=== PATIENT | male | born 1960 | race Caucasian/White ===

== ENCOUNTER 2022-10-18 14:17 | Inpatient (IN) ==
--- NOTE | 2022-10-18 14:28 | Emergency Department Note ---
Impression & Plan Acute hyponatremia, Anal or rectal pain, Hypertension ED Provider Note NAME: MERCEDES PHILLIPS AGE: 62 SEX: M : 1960 ARRIVES VIA: Walk-In INFORMANT: Patient, ED PROVIDER(S): Juan José Booth MD CHIEF COMPLAINT: Buttock pain MEDICAL DECISION MAKING: Patient presents due to concern with left-sided perirectal discomfort. The pa tient does not have significant evidence of obvious abscess concerning findings based on exam but the patient has had worsening discomfort over the last 1 to 2 weeks and has a known history of fistulization. The patient did have blood work completed was ordered IV Toradol and IV morphine and IV was established and blood work was obtained. CT of the pelvis with IV contrast ordered. Patient blood work showed a normal white count H&H and platelet count. CT of the abdomen pelvis does not show any acute concerning findings at this time. The patient was noted to have hyponatremia at 119. The patient does admit to drinking a lot of free water but denies any alcohol use. Patient was ordered u rine and serum awesome's as well as urine electrolytes. I did speak with the on-call hospitalist service Mercedes Peter PA-C and the patient was admitted by Dr. Vogt. Patient was ordered additional IV pain medication. Patient was ordered 75 mcg of fentanyl. Prior /Outside records reviewed: None Differential diagnosis: Fissure, hemorrhoids, abscess, cellulitis, colitis, tear among others were considered Diagnostics, as interpreted by me: ECG: None Cardiac monitoring: An order was placed for continuous cardiac monitoring. The monitor shows a rate of 88 with sinus rhythm. Patient was placed on pulse oximetry Medical decision rules: None Imaging studies: See below HPI: Patient presents due to concern for left-sided buttock pain. The patient states this been ongoing for 1 to 2 weeks. The patient had been seen by Dr. Monte and was referred to a general surgeon. The patient was seen by Dr. Arroyo this Friday and was referred for colorectal this upcoming Friday. The patient has been using naproxen and diltiazem. Patient states that this is not greatly improved symptoms and his pain is more tolerable. Patient denies any fevers chills chest pain shortness of breath nausea or vomiting. Patient presented here today due to worsening discomfort. Patient states that he has decreased the amount of his solids does have occasional discomfort with defecation but no bleeding. Patient has no fevers or chills. PAST MEDICAL HISTORY: See Below PAST SURGICAL HISTORY: See Below SOCIAL HISTORY: See Below HOME MEDICATIONS: See Below ALLERGIES: See Below VITALS: See Below PHYSICAL EXAMINATION: GENERAL: NAD, wearing a mask, non-toxic. BMI greater than 30, wearing glasses. EYE EXAM: Normal conjunctiva. PERRL, no anisocoria and EOM's grossly intact w/o pain. NECK: Supple, no nuchal rigidity, no adenopathy, non-tender. No signs of meningismus. FROM of the neck with good chin to chest and neck extension. No stridor. LUNGS: Clear to auscultation. Normal chest wall mechanics. HEART: NSR, no MRG. ABDOMEN: Abdomen soft, non-tender, normo-active bowel sounds, no masses, no rebound or guarding. BACK: No CVA TTP. SKIN: No rashes and no bruising. Rectal: Some redness noted but no obvious fluctuance or drainage, no fissures, tears or hemorrhoids. Mild discomfort to the left perianal area. UPPER EXTREMITIES: Upper extremities are grossly normal. LOWER EXTREMITIES: Grossly normal, no edema. NEURO EXAM: A&O x3, cranial nerves II-XII grossly intact, normal speech, moves all 4 extremities. Past Med/Surg History Medical History Diabetes History of rectal fissure Surgical History History of rectal sphincterotomy 2017 & 2019 Family History Father Melanoma Cancer Aunt Diabetes Denies family history of Ovarian cancer Prostate cancer Myocardial infarction Breast cancer Colorectal cancer Social History Smoking Status: Never smoker Second Hand Exposure: No; Hx Alcohol Use: No Hx Substance Use: No Preferred Language: Persian Communication Ability: Effective Visual Impairment: No Limitations Hearing Ability: Normal Television Maintenance Man Required: No marital status: Single Current Living Situation: Alone current occupational status: employed and retired current occupation: [employer] Feels Safe at Home: Yes Childhood Exposure to Second-Hand Smoke: No Diet Comment: regular Dental Care, Regularly: No Physical Activity Frequency: Does not Exercise Seatbelt Use: always Sunscreen Use: Yes Assistive Devices: Glasses Allergies Allergies Allergy/AdvReac Type Severity Reaction Status Date / Time amoxicillin Allergy Intermediate Rash Verified 10/16/22 09:30 Home Meds Home Medications Medication Instructions Recorded Confirmed B-complex with vitamin C 1 cap PO DAILY 10/16/22 10/18/22 cholecalciferol (vitamin D3) 50 50 mcg PO DAILY 10/16/22 10/16/22 mcg (2,000 unit) capsule magnesium 250 mg tablet 250 mg PO DAILY 10/16/22 10/18/22 Previous Rx's Medication Instructions Recorded hydrocortisone 2.5 % topical cream 1 applic CA DAILY PRN hemorrhoids 10/15/22 with perineal applicator #30 grams (Proctozone-HC) naproxen 500 mg tablet 500 mg PO BID PRN pain #14 tabs 10/15/22 diltiazem 2% 1 bead CA BID #1 tube 10/16/22 cephalexin 500 mg tablet 500 mg PO QID 5 days #28 tabs 10/18/22 Results & Data (ED) Vital Signs Vital Signs - 24 hr 10/18/22 14:23 10/18/22 15:12 Temperature 36.6 C Temperature Source Temporal Artery Scan Pulse Rate 92 H Pulse Rate [Right Finger] 80 Pulse Rhythm Regular Pulse Rhythm [Right Finger] Regular Pulse Strength Normal Pulse Strength [Right Finger] Normal Respiratory Rate 20 18 Respiratory Effort / Characteristics Non-Labored Spontaneous Non-Labored Respiratory Depth Normal Normal Respiratory Pattern Regular Regular Blood Pressure 203/103 H Blood Pressure [Right Arm] 203/114 H Blood Pressure Mean 136 Blood Pressure Mean [Right Arm] 143 Blood Pressure Position Sitting Pulse Oximetry 96 95 Oxygen Delivery Method Room Air Room Air Sepsis Recent Fever Within 48 Hours No Sepsis New/Unexplained Change in Mental Status No Sepsis Action Taken by Nursing No Action Required Home Medications Current Medication List: was personally reviewed by me Laboratory Data Attestation: I reviewed the patient's lab results. 10/18/22 15:05 10/18/22 15:54 Lab Results 10/18/22 10/18/22 10/18/22 Range/Units 15:05 15:05 15:12 WBC 9.01 (4.8-10.8) K/ul RBC 4.86 (4.70-6.10) M/uL Hgb 15.5 (14.0-18.0) g/dl POC Hgb 16.3 (14.0-18.0) g/dl Hct 42.6 (42.0-52.0) % POC Hct 48 (42-52) % MCV 87.7 (80.0-100.0) fL MCH 31.9 (25.0-34.0) pg MCHC 36.4 H (32.0-36.0) g/dL RDW Std Deviation 37.4 (36.4-46.3) fL RDW Coeff of Surekha 11.6 (11.5-14.5) % Plt Count 272 (130-400) K/uL MPV 8.7 L (9.4-12.4) fL Immature Gran % (Auto) 0.2 % Neut % (Auto) 72.1 % Lymph % (Auto) 16.5 % Geary % (Auto) 9.9 % Eos % (Auto) 0.6 % Baso % (Auto) 0.7 % Neut # (Auto) 6.50 (1.40-6.50) K/uL Lymph # (Auto) 1.49 (1.2-3.4) K/uL Geary # (Auto) 0.89 H (0.11-0.59) K/uL Eos # (Auto) 0.05 (0-0.50) K/uL Baso # (Auto) 0.06 (0-0.2) K/uL Immature Gran # (Auto) 0.02 (0.01-0.20) K/uL POC Sodium 123 L (135-144) mmol/L Sodium TNP POC Potassium 4.3 (3.3-5.0) mmol/L Potassium TNP POC Chloride 85 L (101-112) mmol/L Chloride 87 L (98-107) mmol/L Carbon Dioxide 26 (21-32) mmol/L POC Total CO2 27 (24-31) mmol/L Anion Gap TNP POC Anion Gap 16.0 (16-25) mmol/L POC BUN 10 (7-18) mg/dl BUN 10 (6-23) mg/dl Creatinine 0.71 (0.6-1.4) mg/dl POC Creatinine 0.6 (0.6-1.3) mg/dl Est Cr Clr Drug Dosing 158.5 ml/min Est GFR ( Amer) 114.9 ml/min Est GFR (Non-Af Amer) 99.2 ml/min BUN/Creatinine Ratio 14.1 (10-20) Glucose 138 H (70-99(Fasting)) mg/dl POC Glucose (other) 139 H (70-99) mg/dl Calcium 8.9 (8.5-10.1) mg/dl POC Ioniz Calcium Steve 1.03 L (1.12-1.32) mmol/l AST (13-39) U/L 10/18/22 Range/Units 15:54 WBC (4.8-10.8) K/ul RBC (4.70-6.10) M/uL Hgb (14.0-18.0) g/dl POC Hgb (14.0-18.0) g/dl Hct (42.0-52.0) % POC Hct (42-52) % MCV (80.0-100.0) fL MCH (25.0-34.0) pg MCHC (32.0-36.0) g/dL RDW Std Deviation (36.4-46.3) fL RDW Coeff of Surekha (11.5-14.5) % Plt Count (130-400) K/uL MPV (9.4-12.4) fL Immature Gran % (Auto) % Neut % (Auto) % Lymph % (Auto) % Geary % (Auto) % Eos % (Auto) % Baso % (Auto) % Neut # (Auto) (1.40-6.50) K/uL Lymph # (Auto) (1.2-3.4) K/uL Geary # (Auto) (0.11-0.59) K/uL Eos # (Auto) (0-0.50) K/uL Baso # (Auto) (0-0.2) K/uL Immature Gran # (Auto) (0.01-0.20) K/uL POC Sodium (135-144) mmol/L Sodium 119 L* POC Potassium (3.3-5.0) mmol/L Potassium 4.3 POC Chloride (101-112) mmol/L Chloride (98-107) mmol/L Carbon Dioxide (21-32) mmol/L POC Total CO2 (24-31) mmol/L Anion Gap POC Anion Gap (16-25) mmol/L POC BUN (7-18) mg/dl BUN (6-23) mg/dl Creatinine (0.6-1.4) mg/dl POC Creatinine (0.6-1.3) mg/dl Est Cr Clr Drug Dosing ml/min Est GFR ( Amer) ml/min Est GFR (Non-Af Amer) ml/min BUN/Creatinine Ratio (10-20) Glucose (70-99(Fasting)) mg/dl POC Glucose (other) (70-99) mg/dl Calcium (8.5-10.1) mg/dl POC Ioniz Calcium Steve (1.12-1.32) mmol/l AST 51 H (13-39) U/L Administered Medications Discontinued Medications Ioversol (Optiray 320 500ml) 110 ml IV ONCE ONE Stop: 10/18/22 15:23 Last Admin: 10/18/22 15:23 Dose: 110 ml Documented By: GARRY Ketorolac Tromethamine (Ketorolac Tromethamine 15 Mg/Ml Vial) 10 mg IV NOW STA Stop: 10/18/22 15:01 Last Admin: 10/18/22 15:09 Dose: 10 mg Documented By: CGK Morphine Sulfate (Morphine Sulfate 4 Mg/Ml 1 Ml Carp\Vial) 6 mg IV NOW STA Stop: 10/18/22 15:01 Last Admin: 10/18/22 15:10 Dose: 6 mg Documented By: CGK Imaging Data Radiologist's Impression: Pelvis CT 10/18/22 15:00 CT SCAN OF THE PELVIS WITH IV CONTRAST CLINICAL HISTORY: Perianal/rectal pain. Clinical concern for abscess. COMPARISON STUDY: No priors. TECHNIQUE: Following the IV administration of 110 cc of Optiray 320, CT scan of the pelvis is performed from the pelvic inlet to the proximal femur. Images are reviewed in the axial, sagittal, and coronal planes. IV contrast was administered without complication. A dose lowering technique was utilized adhering to the principles of ALARA. CT DOSE: 1143.03 mGy.cm FINDINGS: The bladder, prostate, and seminal vesicles are normal as visualized. There are small bilateral fat-containing groin hernias. No pelvic sidewall or inguinal lymphadenopathy is seen. There is atherosclerotic calcification of the distal abdominal aorta and iliac arteries. The vessels are patent. No intraperitoneal free air or free fluid is seen in the pelvis. The imaged loops of small bowel and colon are normal in appearance. There is no evidence of obstruction. Normal appendix is seen in the right lower quadrant. The perianal soft tissues are normal in appearance. There is no evidence of p erianal abscess or fistula. The hips and bony pelvis appear intact. Lumbosacral spondylosis is partially visualized. Degenerative change is noted in the sacroiliac joints. No lytic or blastic lesion is seen. There is mild generalized atrophy of the regional musculature. IMPRESSION: No acute abnormality is seen in the pelvis. Specifically, there is no evidence of perianal abscess or fistula as clinically queried. ACT 112: Negative or not required by law. Dictated: 10/18/2022 3:29 PM Transcribed: 10/18/2022 3:45 PM Vicki [id number] NATANAEL_Rocky [id number] Electronically signed by: Mahesh Mckeon M.D. 10/18/2022 3:45 PM Discharge Plan Visit Data Chief Complaint: Rectal Pain Stated Complaint: RECTAL PAIN ED Provider: Juan José Booth Discharge Problem: Acute hyponatremia, Anal or rectal pain, Hypertension Patient Disposition: Admitted As Inpatient Prescriptions Prescriptions: New cephalexin 500 mg tablet 500 mg PO QID 5 Days Qty: 28 0RF No Action B-complex with vitamin C Capsule 1 cap PO DAILY cholecalciferol (vitamin D3) 50 mcg (2,000 unit) capsule 50 mcg PO DAILY magnesium 250 mg tablet 250 mg PO DAILY diltiazem 2% 1 bead CA BID Qty: 1 0RF hydrocortisone [Proctozone-HC] 2.5 % cream with perineal applicator 1 applic CA DAILY PRN (Reason: hemorrhoids) Qty: 30 1RF naproxen 500 mg tablet 500 mg PO BID PRN (Reason: pain) Qty: 14 1RF Referrals Referrals: Anupam Monte, [Primary Care Provider] -
[2022-10-18] MEDS ORDERED: MoRPHine SULFATE 4 MG/ML 1 ML CARP\\VIAL IV STA (15:00)
[2022-10-18] MEDS ORDERED: KETOROLAC TROMETHAMINE 15 MG/ML VIAL IV STA (15:00)
[2022-10-18] MEDS ORDERED: OPTIRAY 320 500ml IV ONE (15:22)
[2022-10-18 15:24] LABS: iSTAT Creatinine 0.6 mg/dl (0.6-1.3); iSTAT Hemoglobin 16.3 g/dl (14.0-18.0); iSTAT Ionized Calcium 1.03 mmol/l (1.12-1.32); iSTAT Potassium 4.3 mmol/L (3.3-5.0)
[2022-10-18 15:29] LABS: Basophils # (auto) 0.06 K/uL (0-0.2); Basophils % (auto) 0.7 %; Eosinophils # (auto) 0.05 K/uL (0-0.50); Eosinophils % (auto) 0.6 %; Hematocrit (blood only) 42.6 % (42.0-52.0); Hemoglobin 15.5 g/dl (14.0-18.0); Immature Granulocytes # (auto) 0.02 K/uL (0.01-0.20); Immature Granulocytes % (auto) 0.2 %; Lymphocytes # (auto) 1.49 K/uL (1.2-3.4); Lymphocytes % (auto) 16.5 %; Mean Corpuscular Hemoglobin 31.9 pg (25.0-34.0); Mean Corpuscular Hgb Conc 36.4 g/dL (32.0-36.0); Mean Corpuscular Volume 87.7 fL (80.0-100.0); Mean Platelet Volume 8.7 fL (9.4-12.4); Monocytes # (auto) 0.89 K/uL (0.11-0.59); Monocytes % (auto) 9.9 %; Neutrophils % (auto) 72.1 %; Platelet Count 272 K/uL (130-400); RDW Coefficient of Variation 11.6 % (11.5-14.5); RDW Standard Deviation 37.4 fL (36.4-46.3); Red Blood Count 4.86 M/uL (4.70-6.10); White Blood Count 9.01 K/ul (4.8-10.8)
[2022-10-18 15:39] LABS: BUN Creatinine Ratio 14.1 (10-20); Blood Urea Nitrogen 10 mg/dl (6-23); Calcium 8.9 mg/dl (8.5-10.1); Carbon Dioxide 26 mmol/L (21-32); Chloride 87 mmol/L (98-107); Creatinine Clr Calc Pharmacy 158.5 ml/min; Est GFR (African American) 114.9 ml/min; Est GFR (Non-African American) 99.2 ml/min; Glucose 138 mg/dl (70-99(Fasting))
--- NOTE | 2022-10-18 15:47 | CT Scan Report ---
CT SCAN OF THE PELVIS WITH IV CONTRAST CLINICAL HISTORY: Perianal/rectal pain. Clinical concern for abscess. COMPARISON STUDY: No priors. TECHNIQUE: Following the IV administration of 110 cc of Optiray 320, CT scan of the pelvis is perform ed from the pelvic inlet to the proximal femur. Images are reviewed in the axial, sagittal, and coron al planes. IV contrast was administered without complication. A dose lowering technique was utilized adhering to the principles of ALARA. CT DOSE: 1143.03 mGy.cm FINDINGS: The bladder, prostate, and seminal vesicles are normal as visualized. There are small bilateral fat-c ontaining groin hernias. No pelvic sidewall or inguinal lymphadenopathy is seen. There is atheroscler otic calcification of the distal abdominal aorta and iliac arteries. The vessels are patent. No intra peritoneal free air or free fluid is seen in the pelvis. The imaged loops of small bowel and colon are normal in appearance. There is no evidence of obstructi on. Normal appendix is seen in the right lower quadrant. The perianal soft tissues are normal in appe arance. There is no evidence of perianal abscess or fistula. The hips and bony pelvis appear intact. Lumbosacral spondylosis is partially visualized. Degenerative change is noted in the sacroiliac joints. No lytic or blastic lesion is seen. There is mild generali zed atrophy of the regional musculature. IMPRESSION: No acute abnormality is seen in the pelvis. Specifically, there is no evidence of periana l abscess or fistula as clinically queried. ACT 112: Negative or not required by law. Dictated: 10/18/2022 3:29 PM Transcribed: 10/18/2022 3:45 PM Vicki [id number] NATANAEL_[facility]y [id number] Electronically signed by: Mahesh Mckeon M.D. 10/18/2022 3:45 PM
[2022-10-18 16:31] LABS: Potassium 4.3 mmol/L (3.5-5.1)
[2022-10-18] MEDS ORDERED: fentaNYL citrate PF 100 MCG/2 ML VIAL IV STA (17:30)
--- NOTE | 2022-10-18 17:35 | History & Physical Report ---
Date of Service October 18, 2022 Assessment & Plan (1) Hyponatremia: Plan: -Admit to the PCU on tele -The patient is currently afebrile, hypertensive with systolic BP in the 180's, and stable on RA -At this time his hyponatremia appears most associated with primary polydipsia and poor oral intake -The patient's only symptoms at this time are generalized fatigue -No IV fluids given in the ED -Will repeat a BMP and obtain serum and urine studies for further evaluation -For now will fluid restrict the patient at 1L with no free water -Monitor BMP q4h moving forward -If his repeat sodium is 120 or less will administer a dose of hypertonic saline -BL SCDs and Sub-Q lovenox for DVT PPX -AM CBC with trending BMPs (2) Anal or rectal pain: Plan: -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 as he has been evaluated by General Surgery who referred him to [facility] [place] -The patient is without a leukocytosis and has been afebrile, no acute abnormalities seen on CT, will hold ABX for now -Continue with topical hydrocortisone cream, continue stool softeners, will order scheduled tylenol and 2 mg IV morphine q3h prn for severe pain (3) Hypertension: Plan: -Noted to be hypertensive with systolics in the 200's but asymptomatic -Is not currently on an antihypertensive -Will start 5 mg IV hydralazine q4h prn systolic BOP > 160 mmhg for now -May need to be discharged on an antihypertensive Plan The patient was discussed with Dr. Vogt at the time of the admission History of Present Illness Chief Complaint: Buttock pain Primary Care Provider: DO Fahad Burns is a 62 year old male with a PMH significant for pervious perirectal fissure S/P surgery in [place] 2017 and 2019 and HTN who presented to the [facility] ED on 10/18/22 with a chief complaint of left buttock pain. In the ED the patient was noted to be afebrile, hypertensive at 203/103, and stable on RA. Labs were significant for a CBC with WBC of 9.0 with stable hgb and platelets, cr of 0.71 with sodium of 119, chloride of 87, ionized calcium of 1.03, and AST of 51. CT of the pelvis with IV contrast was read as "No acute abnormality is seen in the pelvis. Specifically, there is no evidence of perianal abscess or fistula as clinically queried.". The patient was initially given 10 mg IV toradol, 6 mg IV morphine, and 75 mcg of IV fentanyl with plans to DC on PO antibiotics until he was found to be hyponatremic. At the time of the exam the patient was sitting in a bedside chair in no acute distress. He states that he moved to the from [place] approximately one year ago and recently established care with our system. He states that his PMH is consistent for HTN (not currently on medication), previous DMII before weight loss, previous anal fistula S/P fistulotomy as well as a lateral internal sphincterotomy in [place]. He states that approximately 6 weeks ago he started to internal rectal pain. He describes the pain as sharp/stabbing and is exacerbated with bowel movements and palpation. He was seen by Dr. Garza of General Surgery on 10/16/22 who believes the patient likely has an anal fissure as his external exam was normal and he was unable to tolerate a digital exam or anoscopy. Dr. Garza prescribed him diltiazem ointment to be used twice daily, which the patient has been taking without relief of his symptoms. Dr. Garza did refer him to [facility] Colorectal Surgery, of which he has an appointment next week. He came to the ED today due to uncontrolled pain on Naproxen and the topical therapies. Regarding his hyponatremia, the patient states that he does not have a prior history. He is not currently on diuretics, does not drink alcohol, and has not had prior GI surgeries besides the 2 previously listed. When asked about diet, the patient states that he has been trying to limit the amount of solid foods he has been eating to try and keep his bowel movements soft. He has been drinking a lot of water, approximately 8-12 12 OZ bottles of water daily. He denies currently fevers, chills, headaches, changes in vision, hearing, taste, smell, numbness/tingling, chest pain, SOB, abd pain, nausea, vomiting, diarrhea, dy suria, hematuria, LE swelling and recent trauma. Please refer to Dr. Vogt's attestation for any changes to the treatment plan Allergies Allergy/AdvReac Type Severity Reaction Status Date / Time amoxicillin Allergy Intermediate Rash Verified 10/16/22 09:30 Home Medications Medication Instructions Recorded Confirmed Type hydrocortisone 2.5 % topical cream 1 applic IN DAILY PRN hemorrhoids 10/15/22 10/18/22 Rx with perineal applicator #30 grams (Proctozone-HC) naproxen 500 mg tablet 500 mg PO BID PRN pain #14 tabs 10/15/22 10/18/22 Rx B-complex with vitamin C 1 cap PO DAILY 10/16/22 10/18/22 History cholecalciferol (vitamin D3) 50 50 mcg PO DAILY 10/16/22 10/16/22 History mcg (2,000 unit) capsule diltiazem 2% 1 bead IN BID #1 tube 10/16/22 10/18/22 Rx magnesium 250 mg tablet 250 mg PO DAILY 10/16/22 10/18/22 History cephalexin 500 mg tablet 500 mg PO QID 5 days #28 tabs 10/18/22 Rx Past Med/Surg History Medical History Diabetes History of rectal fissure Surgical History History of rectal sphincterotomy 2018 & 2019 Family History Father Melanoma Cancer Aunt Diabetes Denies family history of Ovarian cancer Prostate cancer Myocardial infarction Breast cancer Colorectal cancer Social History Smoking Status: Never smoker Second Hand Exposure: No; Hx Alcohol Use: No Hx Substance Use: No Preferred Language: [place]guill[place] Communication Ability: Effective Visual Impairment: No Limitations Hearing Ability: Normal 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 Beliefs That Will Affect Care: None marital status: Single Current Living Situation: Alone current occupational status: employed and retired current occupation: [employer] Other Information That Helps Us Care for You: No Feels Safe at Home: Yes Safety Concerns: Feels Safe At This Time Childhood Exposure to Second-Hand Smoke: No Diet Comment: regular Dental Care, Regularly: No Physical Activity Frequency: Does not Exercise Seatbelt Use: always Sunscreen Use: Yes Assistive Devices: Glasses Review of Systems Review of Systems: Denies current fever, chills, headache, changes in vision, hearing, taste, and smell, chest pain, SOB, cough, abdominal pain, nausea, vomiting, diarrhea, hematemesis, melena, dysuria, hematuria, and recent falls. All systems have been reviewed and are otherwise negative. Physical Exam Physical Exam: Physical Exam: General: In no acute distress, stated age, morbidly obese, non-toxic appearing HEENT: Normocephalic, atraumatic, no scleral icterus, pupils around round, symmetrical, and reactive to light, moist mucus membranes, trachea midline, no thyromegaly Chest/Pulm: No respiratory distress, symmetrical chest expansion, clear breath sounds throughout Cardiac: RRR, no murmurs noted Abdomen: Negative for ascites and bruising, normoactive bowel sounds, soft, non-tender to palpation throughout GI: Patient without signs of erythema, swelling, or drainage on inspection of the buttocks and anus, patient declined digital exam Musculoskeletal: Symmetrical and without signs of acute trauma, upper and lower extremities with full ROM, no atrophy, spasticity, or flaccidity Extremities: Radial, dorsalis pedis, and posterior tibial pulses are intact and symmetrical, no edema noted in the BL LE's Skin: Warm, dry, no rashes , lesions, or scars noted Neuro: Alert and oriented to person, place, month, year, and president, no focal defects, CN II-XII tested and intact, no tremors noted Psych: No acute distress, calm and cooperative during the exam Results & Data Results & Data ([facility]) Vital Signs (Past 12 Hours) Vital Signs Temp Pulse Pulse Resp BP BP Pulse Ox 10/18/22 15:12 80 18 203/114 H 95 10/18/22 14:23 36.6 C 92 H 20 203/103 H 96 O2 Del Method 10/18/22 15:12 Room Air 10/18/22 14:23 Room Air Laboratory Results Abnormal lab results 10/18/22 10/18/22 10/18/22 Range/Units 15:05 15:05 15:12 MCHC 36.4 H (32.0-36.0) g/dL MPV 8.7 L (9.4-12.4) fL Lares # (Auto) 0.89 H (0.11-0.59) K/uL POC Sodium 123 L (135-144) mmol/L Sodium (136-145) mmol/L POC Chloride 85 L (101-112) mmol/L Chloride 87 L (98-107) mmol/L Glucose 138 H (70-99(Fasting)) mg/dl POC Glucose (other) 139 H (70-99) mg/dl POC Ioniz Calcium Steve 1.03 L (1.12-1.32) mmol/l AST (13-39) U/L 10/18/22 Range/Units 15:54 MCHC (32.0-36.0) g/dL MPV (9.4-12.4) fL Lares # (Auto) (0.11-0.59) K/uL POC Sodium (135-144) mmol/L Sodium 119 L* (136-145) mmol/L POC Chloride (101-112) mmol/L Chloride (98-107) mmol/L Glucose (70-99(Fasting)) mg/dl POC Glucose (other) (70-99) mg/dl POC Ioniz Calcium Steve (1.12-1.32) mmol/l AST 51 H (13-39) U/L Diagnostic Findings Pelvis CT 10/18/22 15:00 CT SCAN OF THE PELVIS WITH IV CONTRAST CLINICAL HISTORY: Perianal/rectal pain. Clinical concern for abscess. COMPARISON STUDY: No priors. TECHNIQUE: Following the IV administration of 110 cc of Optiray 320, CT scan of the pelvis is performed from the pelvic inlet to the proximal femur. Images are reviewed in the axial, sagittal, and coronal planes. IV contrast was administered without complication. A dose lowering technique was utilized adhering to the principles of ALARA. CT DOSE: 1143.03 mGy.cm FINDINGS: The bladder, prostate, and seminal vesicles are normal as visualized. There are small bilateral fat-containing groin hernias. No pelvic sidewall or inguinal lymphadenopathy is seen. There is atherosclerotic calcification of the distal abdominal aorta and iliac arteries. The vessels are patent. No intraperitoneal free air or free fluid is seen in the pelvis. The imaged loops of small bowel and colon are normal in appearance. There is no evidence of obstruction. Normal appendix is seen in the right lower quadrant. The perianal soft tissues are normal in appearance. There is no evidence of perianal abscess or fistula. The hips and bony pelvis appear intact. Lumbosacral spondylosis is partially visualized. Degenerative change is noted in the sacroiliac joints. No lytic or blastic lesion is seen. There is mild generalized atrophy of the regional musculature. IMPRESSION: No acute abnormality is seen in the pelvis. Specifically, there is no evidence of perianal abscess or fistula as clinically queried. ACT 112: Negative or not required by law. Dictated: 10/18/2022 3:29 PM Transcribed: 10/18/2022 3:45 PM Vicki [id number] Jennifer [id number] Electronically signed by: Mahesh Mckeon M.D. 10/18/2022 3:45 PM ECG Additional Comments: NO ECG available at the time of the admission Code Status & VTE Plan Code Status Full code VTE Prophylaxis Plan VTE Prophylaxis will be ordered: Yes Supervising Physician Co-Signing Physician Notes I personally saw and examined the patient. I verified all orellana points and agree with Fahad Peter PA-C with the following exceptions and/or additions: 62 year old male admission for hyponatremia. No nausea, vomiting headache, confusion, tremor, muscle cramps. Mild dizziness although he puts this down to recent pain medication. O/E A&Ox3, HS RRR, no murmurs, Chest CTAB, Abdo SNT, motor and sensation intact in all 4 extremities, b/l knee and bicep reflexes normal and equal b/l, CN 2-> 12 intact A/P Acute hyponatremia - suspect due to "tea and toast" diet with increased free water intake. Given current hypertension will avoid salt tabs. Urine osm and sodium pending but history eludes to this diagnosis. Free water restrict to 1L and follow sodium q4h. Can use hypertonic saline as needed if not improving at rate of 6-8 in the next 24 hours. Rectal pain - morphine overnight, patient will follow up with colorectal surgery for this next week. No significant etiology on CT but very specific to rectum. PG Care Time/CCT Total # of Minutes Spent Total Time Spent with Patient: Total time spent is greater than 50% in coordination of care (as documented) at patient's floor/unit and/or counseling patient: [place] [address] INT INP/OBS CARE 3/75MIN Patient Type Established Medical Decision Making High Complexity Diagnoses Hyponatremia E87.1 Anal or rectal pain K62.89 Hypertension I10 Hypertension type: unspecified (3) Hypertension Hypertension type: unspecified Qualified Code(s): I10 - Essential (primary) hypertension
[2022-10-18] MEDS ORDERED: MoRPHine SULFATE 2 MG/ML CARP IV PRN (18:04)
[2022-10-18] MEDS ORDERED: hydrALAZINE HCL 20 MG/ML VIAL IV PRN ×2 (18:18→20:51)
[2022-10-18 18:43] LABS: BUN Creatinine Ratio 13.9 (10-20); Calcium 8.8 mg/dl (8.5-10.1); Creatinine Clr Calc Pharmacy 156.3 ml/min; Est GFR (African American) 114.3 ml/min; Est GFR (Non-African American) 98.6 ml/min; Magnesium 1.9 mg/dl (1.7-2.4); Phosphorus 3.1 mg/dl (2.5-4.9); Potassium 4.1 mmol/L (3.5-5.1)
[2022-10-18] MEDS ORDERED: hydrALAZINE HCL 20 MG/ML VIAL IV STA (18:58)
[2022-10-18] MEDS: ACETAMINOPHEN 325 MG TAB PO SCH ×2 (19:39→23:05)
[2022-10-18] MEDS: POLYETHYLENE (MIRALAX) 17 GM PACK PO SCH (19:39)
[2022-10-18] MEDS ORDERED: HYDROCORTISONE HC 2.5% CRM 30GM TUBE EXT PRN (20:51)
[2022-10-18] MEDS: MoRPHine SULFATE 2 MG/ML CARP IV PRN ×2 (21:00→23:50)
[2022-10-18] MEDS ORDERED: NITROGLYCERIN 2% 7.5 INCH, AQUAPHOR 67.5 GM, BARCODE IDENTIFIER 1 EACH EXT PRN (23:00)
[2022-10-18] MEDS: ENOXAPARIN INJ 40 MG/0.4 ML SYR SQ SCH (23:05)
[2022-10-18 23:15] LABS: Creatinine Clr Calc Pharmacy 170.5 ml/min
[2022-10-18 23:23] LABS: BUN Creatinine Ratio 15.7 (10-20); Calcium 8.7 mg/dl (8.5-10.1); Est GFR (African American) 115.6 ml/min; Est GFR (Non-African American) 99.7 ml/min
[2022-10-18 23:24] LABS: Urine Chloride < 15 mmol/L; Urine Potassium 55.9 mmol/L; Urine Sodium 13 mmol/L
[2022-10-18] MEDS ORDERED: oxyCODONE HCL IR 5 MG TAB (IMMEDIATE RELEASE) PO STA (23:26)
[2022-10-19 02:44] LABS: Basophils # (auto) 0.05 K/uL (0-0.2); Basophils % (auto) 0.6 %; Eosinophils # (auto) 0.19 K/uL (0-0.50); Eosinophils % (auto) 2.4 %; Hematocrit (blood only) 37.3 % (42.0-52.0); Hemoglobin 13.7 g/dl (14.0-18.0); Immature Granulocytes # (auto) 0.01 K/uL (0.01-0.20); Immature Granulocytes % (auto) 0.1 %; Mean Corpuscular Hemoglobin 32.2 pg (25.0-34.0); Mean Corpuscular Hgb Conc 36.7 g/dL (32.0-36.0); Mean Corpuscular Volume 87.8 fL (80.0-100.0); Mean Platelet Volume 8.6 fL (9.4-12.4); Monocytes # (auto) 0.75 K/uL (0.11-0.59); Monocytes % (auto) 9.5 %; Neutrophils # (auto) 4.63 K/uL (1.40-6.50); Neutrophils % (auto) 58.4 %; Platelet Count 220 K/uL (130-400); RDW Coefficient of Variation 11.8 % (11.5-14.5); Red Blood Count 4.25 M/uL (4.70-6.10); White Blood Count 7.93 K/ul (4.8-10.8)
[2022-10-19 02:59] LABS: BUN Creatinine Ratio 21.4 (10-20); Calcium 8.3 mg/dl (8.5-10.1); Creatinine Clr Calc Pharmacy 200.9 ml/min; Est GFR (African American) 126.7 ml/min; Est GFR (Non-African American) 109.3 ml/min; Potassium 3.5 mmol/L (3.5-5.1)
[2022-10-19 03:00] LABS: Albumin Globulin Ratio 1.3 (0.9-2); Albumin Level 3.6 gm/dl (3.4-5.0); BUN Creatinine Ratio 20.7 (10-20); Bilirubin,Total 0.6 mg/dl (0.2-1.0); Calcium 8.4 mg/dl (8.5-10.1); Est GFR (African American) 124.9 ml/min; Est GFR (Non-African American) 107.7 ml/min; Globulin 2.8 gm/dl (2.5-4.0); Magnesium 1.9 mg/dl (1.7-2.4); Potassium 3.5 mmol/L (3.5-5.1); Total Protein 6.4 gm/dl (6.0-8.3)
[2022-10-19] MEDS: oxyCODONE HCL IR 5 MG TAB (IMMEDIATE RELEASE) PO PRN ×3 (06:15→18:36)
[2022-10-19] MEDS: ACETAMINOPHEN 325 MG TAB PO SCH (06:16)
[2022-10-19 07:06] LABS: Calcium 8.6 mg/dl (8.5-10.1); Est GFR (African American) 124.9 ml/min; Est GFR (Non-African American) 107.7 ml/min; Potassium 3.9 mmol/L (3.5-5.1)
--- NOTE | 2022-10-19 07:47 | Hospitalist Progress Note ---
Date of Service October 19, 2022 Assessment & Plan (1) Hyponatremia: Plan: -Asymptomatic, incidentally noted on admission labwork - Na 119 on admission, up to 125 overnight with fluid restriction, will also give NaCl tab - Serum Osm 259 < U Osm 800, 2/2 low solute diet in the recent past - BMP q6h, goal increase 5-6 points q12 hours - Can consult Nephrology if necessary (2) Anal fissure: Plan: - With significant anal pain; he has been evaluated by General Surgery who [place] [facility] [place] (appt next week) - The patient is without leukocytosis and has been afebrile, no acute abno rmalities seen on CT, defer Abx - Continue with topical hydrocortisone cream, nitro cream, dilt topical; continue stool softeners. (3) Anal or rectal pain: Plan: -2/2 above, also has oxycodone/morphine with prn parameters for pain not relieved by topicals (4) Hypertension: Plan: -Noted to be hypertensive with systolics in the 200's on admission, asymptomatic -Improved today with BP 150-160s, improved with pain control though still elevated -Is not currently on an antihypertensive; can consider starting daily medication on discharge (5) Diabetes: Plan: Reported on history, however no A1c on record, ordered BSGs low 100s, defer insulin for now DM2 diet Admission and Anticipated Discharge Date Admission Date: October 18, 2022 Subjective Patient without any acute events overnight. He does complain of anal pain ongoing, improved with as needed medications. No other reports of confusion, shortness of breath, chest pain, abdominal pain, nausea. Review of Systems Review of Systems: All systems reviewed & are unremarkable except as noted in Subjective Physical Exam Constitutional: WD/WN, vitals as above obese Respiratory: normal respiratory effort, lungs clear to auscultation Cardiovascular: RRR, no murmur, no edema Gastrointestinal (Abdomen): normal bowel sounds, soft, nontender, no hepatosplenomegaly Skin: no rashes, warm and dry Psychiatric: A+Ox3, euthymic affect Results & Data Results & Data ([facility]) Vital Signs (Past 12 Hours) Vital Signs Temp Pulse Pulse Resp BP Pulse Ox O2 Del Method 10/19/22 07:24 36.5 C 61 18 160/86 H 97 Room Air 10/19/22 07:24 71 10/19/22 02:32 36.6 C 63 18 115/68 95 Room Air 10/18/22 20:45 Room Air 10/18/22 20:45 36.6 C 86 20 181/89 H 96 Room Air 10/18/22 22:01 81 10/18/22 20:40 85 10/18/22 22:30 36.6 C 80 22 117/91 96 Room Air 10/18/22 20:51 36.6 C 86 20 181/89 H 96 Room Air 10/18/22 20:10 Room Air PG Care Time/CCT Total # of Minutes Spent Total Time Spent with Patient: Total time spent is greater than 50% in coordination of care (as documented) at patient's floor/unit and/or counseling patient: Coding Level of Care Code 91717 SUB INP/OBS CARE 3/50MIN Diagnoses Hyponatremia E87.1 Anal fissure K60.2 Anal or rectal pain K62.89 Hypertension I10 Hypertension type: unspecified Diabetes E11.9 (4) Hypertension Hypertension type: unspecified Qualified Code(s): I10 - Essential (primary) hypertension
[2022-10-19] MEDS: HYDROCORTISONE HC 2.5% CRM 30GM TUBE EXT SCH (08:11)
[2022-10-19] MEDS: ENOXAPARIN INJ 40 MG/0.4 ML SYR SQ SCH ×2 (08:11→20:43)
[2022-10-19] MEDS: POLYETHYLENE (MIRALAX) 17 GM PACK PO SCH (08:14)
[2022-10-19] MEDS: MoRPHine SULFATE 2 MG/ML CARP IV PRN ×2 (08:14→14:23)
[2022-10-19 10:32] LABS: BUN Creatinine Ratio 17.9 (10-20); Calcium 8.4 mg/dl (8.5-10.1); Creatinine Clr Calc Pharmacy 200.9 ml/min; Est GFR (African American) 126.7 ml/min; Est GFR (Non-African American) 109.3 ml/min; Potassium 4.2 mmol/L (3.5-5.1)
[2022-10-19] MEDS: ACETAMINOPHEN 500 MG TAB PO SCH ×2 (14:01→20:44)
--- NOTE | 2022-10-19 14:25 | Electrocardiogram Report ---
Test Reason : Blood Pressure : / mmHG Vent. Rate : 069 BPM Atrial Rate : 070 BPM P-R Int : 000 ms QRS Dur : 158 ms QT Int : 460 ms P-R-T Axes : 000 066 058 degrees QTc Int : 492 ms Poor data quality, interpretation may be adversely affected Normal sinus rhythm Right bundle branch block Inferior infarct , age undetermined Abnormal ECG No previous ECGs available Confirmed by Pratik Shahid ([id number]) on 10/19/2022 2:24:50 PM Referred By: REFERRED SELF Confirmed By:Pratik Shahid
[2022-10-19 14:34] LABS: BUN Creatinine Ratio 16.9 (10-20); Calcium 8.9 mg/dl (8.5-10.1); Creatinine Clr Calc Pharmacy 173.1 ml/min; Est GFR (African American) 119.2 ml/min; Est GFR (Non-African American) 102.8 ml/min; Potassium 4.5 mmol/L (3.5-5.1)
[2022-10-19] MEDS ORDERED: SODIUM CHLORIDE 1 GM TABLET PO ONE (18:12)
[2022-10-19 18:27] LABS: BUN Creatinine Ratio 15.6 (10-20); Calcium 8.6 mg/dl (8.5-10.1); Creatinine Clr Calc Pharmacy 175.8 ml/min; Est GFR (African American) 119.9 ml/min; Est GFR (Non-African American) 103.5 ml/min; Potassium 4.3 mmol/L (3.5-5.1)
[2022-10-19] MEDS: DOCUSATE SODIUM 100 MG CAP PO SCH (20:44)
[2022-10-19] MEDS: DILTIAZEM PR SCH (20:45)
[2022-10-20] MEDS: oxyCODONE HCL IR 5 MG TAB (IMMEDIATE RELEASE) PO PRN ×4 (00:27→18:29)
[2022-10-20 01:10] LABS: BUN Creatinine Ratio 16.7 (10-20); Calcium 8.7 mg/dl (8.5-10.1); Creatinine Clr Calc Pharmacy 187.5 ml/min; Est GFR (African American) 123.2 ml/min; Est GFR (Non-African American) 106.3 ml/min; Potassium 3.9 mmol/L (3.5-5.1)
[2022-10-20] MEDS: MoRPHine SULFATE 2 MG/ML CARP IV PRN ×2 (03:15→08:09)
[2022-10-20] MEDS: ACETAMINOPHEN 500 MG TAB PO SCH ×3 (06:17→21:51)
[2022-10-20 07:09] LABS: Basophils # (auto) 0.06 K/uL (0-0.2); Basophils % (auto) 1.1 %; Eosinophils # (auto) 0.27 K/uL (0-0.50); Eosinophils % (auto) 4.8 %; Hematocrit (blood only) 41.1 % (42.0-52.0); Hemoglobin 14.6 g/dl (14.0-18.0); Immature Granulocytes # (auto) 0.01 K/uL (0.01-0.20); Immature Granulocytes % (auto) 0.2 %; Lymphocytes # (auto) 1.65 K/uL (1.2-3.4); Lymphocytes % (auto) 29.6 %; Mean Corpuscular Hemoglobin 31.7 pg (25.0-34.0); Mean Corpuscular Hgb Conc 35.5 g/dL (32.0-36.0); Mean Corpuscular Volume 89.3 fL (80.0-100.0); Mean Platelet Volume 8.5 fL (9.4-12.4); Monocytes # (auto) 0.57 K/uL (0.11-0.59); Monocytes % (auto) 10.2 %; Neutrophils # (auto) 3.02 K/uL (1.40-6.50); Neutrophils % (auto) 54.1 %; Platelet Count 253 K/uL (130-400); RDW Coefficient of Variation 11.9 % (11.5-14.5); RDW Standard Deviation 38.9 fL (36.4-46.3); White Blood Count 5.58 K/ul (4.8-10.8)
[2022-10-20 08:06] LABS: Calcium 8.5 mg/dl (8.5-10.1); Potassium 4.1 mmol/L (3.5-5.1)
[2022-10-20] MEDS: DILTIAZEM PR SCH ×2 (08:10→20:14)
[2022-10-20] MEDS: POLYETHYLENE (MIRALAX) 17 GM PACK PO SCH (08:10)
[2022-10-20] MEDS: DOCUSATE SODIUM 100 MG CAP PO SCH ×2 (08:10→20:13)
[2022-10-20 08:11] LABS: BUN Creatinine Ratio 13.8 (10-20); Creatinine Clr Calc Pharmacy 173.6 ml/min; Est GFR (African American) 119.2 ml/min; Est GFR (Non-African American) 102.8 ml/min
[2022-10-20] MEDS: HYDROCORTISONE HC 2.5% CRM 30GM TUBE EXT SCH (08:11)
[2022-10-20] MEDS: ENOXAPARIN INJ 40 MG/0.4 ML SYR SQ SCH ×2 (08:17→20:13)
[2022-10-20 08:54] LABS: Albumin Globulin Ratio 1.2 (0.9-2); Albumin Level 3.7 gm/dl (3.4-5.0); BUN Creatinine Ratio 12.3 (10-20); Bilirubin,Total 0.5 mg/dl (0.2-1.0); Calcium 8.5 mg/dl (8.5-10.1); Creatinine Clr Calc Pharmacy 173.6 ml/min; Est GFR (African American) 119.2 ml/min; Est GFR (Non-African American) 102.8 ml/min; Magnesium 1.9 mg/dl (1.7-2.4); Total Protein 6.7 gm/dl (6.0-8.3)
[2022-10-20 09:04] LABS: Estimated Average Glucose 131 mg/dl; Hemoglobin A1C 6.2 % (4.5-5.6)
--- NOTE | 2022-10-20 12:07 | Hospitalist Progress Note ---
Date of Service October 20, 2022 Assessment & Plan (1) Hyponatremia: Plan: - Asymptomatic, incidentally noted on admission labwork - Na 119 on admission, up to 129 this admission overnight with fluid restriction, NaCl tablets - Serum Osm 259 < U Osm 800, 2/2 low solute diet in the recent past - BMP q6h, goal increase 5-6 points q12 hours - Can consult Nephrology if necessary, but seems to be improving slowly (2) Anal fissure: Plan: - With significant anal pain and history of anal fissure/fistula in the past. He has been evaluated by General Surgery who referred him to [facility] (appt Sunday 10/22) - The patient is without leukocytosis and has been afebrile, no acute abnormalities seen on CT, no Abx indicated - Continue with topical hydrocortisone cream, nitro cream, dilt topical; continue stool softeners - Anticipate discharge tomorrow if can find appropriate oral regimen for pain, given that appointment with colorectal surgery will be instrumental in determining cause and best course of action for pain (3) Anal or rectal pain: Plan: -2/2 above, also has oxycodone/morphine with prn parameters for pain not relieved by topicals; increased oxycodone to 10mg dosing and increasing interval between dilaudid dosing as we are approaching possible discharge (4) Hypertension: Plan: -Noted to be hypertensive with systolics in the 200's on admission, asymptomatic -Improved with BP 150-160s, improved with pain control though still elevated, defer to PCP as patient feels his elevated BP is pain-related and will resolve with resolution of pain (5) Diabetes: Plan: Reported on history, A1c 6.2%, at goal for age BSGs low 100s, defer insulin DM2 diet Admission and Anticipated Discharge Date Admission Date: October 18, 2022 Subjective Patient is anxious about the cause for his rectal pain. He is worried about how he will make his appointment Friday given his level of pain. Review of Systems Review of Systems: All systems reviewed & are unremarkable except as noted in Subjective Physical Exam Constitutional: WD/WN, vitals as above obese Respiratory: normal respiratory effort, lungs clear to auscultation Cardiovascular: RRR, no murmur, no edema Gastrointestinal (Abdomen): normal bowel sounds, soft, nontender, no hepatosplenomegaly Skin: no rashes, warm and dry Psychiatric: A+Ox3, euthymic affect Results & Data Results & Data ([facility]) Vital Signs (Past 12 Hours) Vital Signs Temp Pulse Pulse Resp BP Pulse Ox O2 Del Method 10/20/22 11:31 36.4 C L 73 22 168/87 H 94 Room Air 10/20/22 08:04 36.8 C 70 20 163/94 H 93 Room Air 10/20/22 07:22 63 10/20/22 04:00 77 165/76 H 10/20/22 03:48 36.4 C L 80 16 180/94 H 94 Room Air 10/19/22 23:32 65 PG Care Time/CCT Total # of Minutes Spent Total Time Spent with Patient: Total time spent is greater than 50% in coordination of care (as documented) at patient's floor/unit and/or counseling patient: Coding Level of Care Code 35928 SUB INP/OBS CARE 3/50MIN Diagnoses Hyponatremia E87.1 Anal fissure K60.2 Anal or rectal pain K62.89 Hypertension I10 Hypertension type: unspecified Diabetes E11.9 (4) Hypertension Hypertension type: unspecified Qualified Code(s): I10 - Essential (primary) hypertension
[2022-10-20 13:45] LABS: BUN Creatinine Ratio 13.9 (10-20); Calcium 9.3 mg/dl (8.5-10.1); Creatinine Clr Calc Pharmacy 156.7 ml/min; Est GFR (African American) 114.3 ml/min; Est GFR (Non-African American) 98.6 ml/min; Potassium 4.6 mmol/L (3.5-5.1)
[2022-10-20] MEDS ORDERED: SODIUM CHLORIDE 1 GM TABLET PO ONE (14:12)
[2022-10-20] MEDS: MoRPHine SULFATE 4 MG/ML 1 ML CARP\\VIAL IV PRN (16:50)
[2022-10-21] MEDS: oxyCODONE HCL IR 5 MG TAB (IMMEDIATE RELEASE) PO PRN ×2 (00:33→06:28)
[2022-10-21] MEDS: MoRPHine SULFATE 4 MG/ML 1 ML CARP\\VIAL IV PRN ×3 (03:15→19:27)
[2022-10-21] MEDS: ACETAMINOPHEN 500 MG TAB PO SCH ×4 (06:29→21:36)
[2022-10-21 06:47] LABS: BUN Creatinine Ratio 12.3 (10-20); Calcium 8.6 mg/dl (8.5-10.1); Creatinine Clr Calc Pharmacy 173.5 ml/min; Est GFR (African American) 119.2 ml/min; Est GFR (Non-African American) 102.8 ml/min; Potassium 3.9 mmol/L (3.5-5.1)
[2022-10-21] MEDS: DOCUSATE SODIUM 100 MG CAP PO SCH ×2 (08:05→21:36)
[2022-10-21] MEDS: ENOXAPARIN INJ 40 MG/0.4 ML SYR SQ SCH ×2 (08:06→21:36)
[2022-10-21] MEDS: HYDROCORTISONE HC 2.5% CRM 30GM TUBE EXT SCH (08:06)
[2022-10-21] MEDS: DILTIAZEM PR SCH ×2 (08:07→21:36)
[2022-10-21] MEDS: POLYETHYLENE (MIRALAX) 17 GM PACK PO SCH (08:10)
[2022-10-21] MEDS: oxyCODONE HCL IR 5 MG TAB (IMMEDIATE RELEASE) PO SCH ×3 (11:53→22:40)
[2022-10-21] MEDS ORDERED: amLODIPine BESYLATE 5 MG TAB PO ONE (12:02)
--- NOTE | 2022-10-21 12:05 | Hospitalist Progress Note ---
Date of Service October 21, 2022 Assessment & Plan (1) Hyponatremia: Plan: - Asymptomatic, incidentally noted on admission labwork - Na 119 on admission, up to 131 with fluid restriction (continue), intermittent NaCl tablets - Serum Osm 259 < U Osm 800, 2/2 low solute diet in the recent past as he was trying to avoid solids due to rectal pain - Can consult Nephrology if necessary, but seems to be improving slowly (2) Anal fissure: Plan: - With significant anal pain and history of anal fissure/fistula in the past. He has been evaluated by General Surgery Greg Arroyo who referred him to [facility] [place] rectal surgery (appt Sunday 10/[address] Katie Lara at 11:15 AM) - The patient is without leukocytosis and has been afebrile, no acute abnormalities seen on CT, no Abx indicated - Continue with topical hydrocortisone cream, nitro cream, dilt topical; continue stool softeners -Given ongoing rectal pain patient requests discharge tomorrow mold stamper so that he can go from hospital to colorectal appointment for evaluation, believe this is reasonable given he requires some IV pain medication at times (3) Anal or rectal pain: Plan: -2/2 above, also has oxycodone/morphine with prn parameters for pain not relieved by topicals; increased oxycodone to 10mg dosing and increasing interval between dilaudid dosing as we are approaching possible discharge (4) Hypertension: Plan: -Noted to be hypertensive with systolics in the 200's on admission, asymptomatic -Amlodipine 5 mg p.o. daily initiated while admitted, can continue on discharge -Hydralazine 10 mg IV every 4 hours as needed for SBP >180 (5) Diabetes: Plan: Reported on history, A1c 6.2%, at goal for age BSGs low 100s, defer insulin DM2 diet Admission and Anticipated Discharge Date Admission Date: October 18, 2022 Subjective Overnight with some pain improved with IV pain medication, patient is very frus trated about the pain in asked about possibility of exam under anesthesia by surgery. He has no other concerns such as chest pain, shortness of breath, lightheadedness, confusion. He has an appointment tomorrow morning at 11 with colorectal surgery outpatient. Review of Systems Review of Systems: All systems reviewed & are unremarkable except as noted in Subjective Physical Exam Constitutional: WD/WN, vitals as above obese Respiratory: normal respiratory effort, lungs clear to auscultation Cardiovascular: RRR, no murmur, no edema Gastrointestinal (Abdomen): normal bowel sounds, soft, nontender, no hepatosplenomegaly Skin: no rashes, warm and dry Psychiatric: A+Ox3, euthymic affect Results & Data Results & Data ([facility]) Vital Signs (Past 12 Hours) Vital Signs Temp Pulse Pulse Resp BP BP Pulse Ox 10/21/22 11:49 186/92 H 10/21/22 11:39 36.6 C 91 H 16 95 10/21/22 09:39 60 10/21/22 07:30 36.6 C 69 16 166/86 H 94 10/21/22 03:43 36.4 C L 65 18 160/95 H 94 O2 Del Method 10/21/22 11:49 10/21/22 11:39 Room Air 10/21/22 09:39 10/21/22 07:30 Room Air 10/21/22 03:43 Room Air PG Care Time/CCT Total # of Minutes Spent Total Time Spent with Patient: Total time spent is greater than 50% in coordination of care (as documented) at patient's floor/unit and/or counseling patient: Coding Level of Care Code 03652 SUB INP/OBS CARE 2/35MIN Diagnoses Hyponatremia E87.1 Anal fissure K60.2 Anal or rectal pain K62.89 Hypertension I10 Hypertension type: unspecified Diabetes E11.9 (4) Hypertension Hypertension type: unspecified Qualified Code(s): I10 - Essential (primary) hypertension
[2022-10-21] MEDS: hydrALAZINE HCL 20 MG/ML VIAL IV PRN (12:06)
[2022-10-21] MEDS ORDERED: METOPROLOL TARTRATE 1 MG/ML VIAL IV STA (13:20)
[2022-10-21] MEDS: NAPROXEN 250 MG TAB PO SCH (21:36)
[2022-10-22] MEDS: MoRPHine SULFATE 4 MG/ML 1 ML CARP\\VIAL IV PRN (03:50)
[2022-10-22] MEDS: oxyCODONE HCL IR 5 MG TAB (IMMEDIATE RELEASE) PO SCH (04:45)
[2022-10-22] MEDS: ACETAMINOPHEN 500 MG TAB PO SCH (06:21)
[2022-10-22] MEDS: DOCUSATE SODIUM 100 MG CAP PO SCH (07:57)
[2022-10-22] MEDS: DILTIAZEM PR SCH (07:58)
[2022-10-22] MEDS: NAPROXEN 250 MG TAB PO SCH (07:58)
[2022-10-22] MEDS: HYDROCORTISONE HC 2.5% CRM 30GM TUBE EXT SCH (07:59)
[2022-10-22] MEDS: POLYETHYLENE (MIRALAX) 17 GM PACK PO SCH (08:03)
[2022-10-22] MEDS: hydrALAZINE HCL 20 MG/ML VIAL IV PRN (08:11)
[2022-10-22] MEDS: ENOXAPARIN INJ 40 MG/0.4 ML SYR SQ SCH (08:17)
[2022-10-22 08:54] LABS: Anion Gap 8 (3-11); BUN Creatinine Ratio 12.5 (10-20); Blood Urea Nitrogen 10 mg/dl (6-23); Calcium 8.7 mg/dl (8.5-10.1); Carbon Dioxide 29 mmol/L (21-32); Chloride 94 mmol/L (98-107); Creatinine Clr Calc Pharmacy 141.8 ml/min; Est GFR (African American) 109.4 ml/min; Est GFR (Non-African American) 94.4 ml/min; Glucose 108 mg/dl (70-99(Fasting)); Sodium 131 mmol/L (136-145)
[2022-10-22] MEDS ORDERED: amLODIPine BESYLATE 5 MG TAB PO SCH (09:00)
--- NOTE | 2022-10-22 09:04 | Discharge Summary ---
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 In the ED the patient was noted to be afebrile, hypertensive at 203/103, and stable on RA. Labs were significant for a CBC with WBC of 9.0 with stable hgb and platelets, cr of 0.71 with sodium of 119, chloride of 87, ionized calcium of 1.03, and AST of 51. CT of the pelvis with IV contrast was read as "No acute abnormality is seen in the pelvis. Specifically, there is no evidence of perianal abscess or fistula as clinically queried.". The patient was initially given 10 mg IV toradol, 6 mg IV morphine, and 75 mcg of IV fentanyl with plans to DC on PO antibiotics until he was found to be hyponatremic. At the time of the exam the patient was sitting in a bedside chair in no acute distress. He states that he moved to the from [place] approximately one year ago and recently established care with our system. He states that his PMH is consistent for HTN (not currently on medication), previous DMII before weight loss, previous anal fistula S/P fistulotomy as well as a lateral internal sphincterotomy in [place]. He states that approximately 6 weeks ago he started to internal rectal pain. He describes the pain as sharp/stabbing and is exacerbated with bowel movements and palpation. He was seen by Dr. Garza of General Surgery on 10/16/22 who believes the patient likely has an anal fissure as his external exam was normal and he was unable to tolerate a digital exam or anoscopy. Dr. Garza prescribed him diltiazem ointment to be used twice daily, which the patient has been taking without relief of his symptoms. Dr. Garza did refer him to [facility] Colorectal Surgery, of which he has an appointment next week. He came to the ED today due to uncontrolled pain on Naproxen and the topical therapies. Regarding his hyponatremia, the patient states that he does not have a prior history. He is not currently on diuretics, does not drink alcohol, and has not had prior GI surgeries besides the 2 previously listed. When asked about diet, the patient states that he has been trying to limit the amount of solid foods he has been eating to try and keep his bowel movements soft. He has been drinking a lot of water, approximately 8-12 12 OZ bottles of water daily. He denies currently fevers, chills, headaches, changes in vision, hearing, taste, smell, numbness/tingling, chest pain, SOB, abd pain, nausea, vomiting, diarrhea, dysuria, hematuria, LE swelling and recent trauma. Principal Diagnosis 1. severe rectal pain - colorectal surgery follow-up established 2. severe hyponatremia - admission level = 119; discharge level = 131 3. HTN 4. pre-diabetes Discharge Exam gen - obese, NAD mouth - MMM neck - no JVD heart - RRR, s1 s2, no murmur lungs - CTA b/l abd - soft NT ND BS+ ext - no edema, pulses 2+ b/l Discharge Data Allergies Allergy/AdvReac Type Severity Reaction Status Date / Time amoxicillin Allergy Intermediate Rash Verified 10/28/22 14:[address] 10/18/22 15:00 CT SCAN OF THE PELVIS WITH IV CONTRAST CLINICAL HISTORY: Perianal/rectal pain. Clinical concern for abscess. COMPARISON STUDY: No priors. TECHNIQUE: Following the IV administration of 110 cc of Optiray 320, CT scan of the pelvis is performed from the pelvic inlet to the proximal femur. Images are reviewed in the axial, sagittal, and coronal planes. IV contrast was administered without complication. A dose lowering technique was utilized adhering to the principles of ALARA. CT DOSE: 1143.03 mGy.cm FINDINGS: The bladder, prostate, and seminal vesicles are normal as visualized. There are small bilateral fat-containing groin hernias. No pelvic sidewall or inguinal lymphadenopathy is seen. There is atherosclerotic calcification of the distal abdominal aorta and iliac arteries. The vessels are patent. No intraperitoneal free air or free fluid is seen in the pelvis. The imaged loops of small bowel and colon are normal in appearance. There is no evidence of obstruction. Normal appendix is seen in the right lower quadrant. The perianal soft tissues are normal in appearance. There is no evidence of perianal abscess or fistula. The hips and bony pelvis appear intact. Lumbosacral spondylosis is partially visualized. Degenerative change is noted in the sacroiliac joints. No lytic or blastic lesion is seen. There is mild generalized atrophy of the regional musculature. IMPRESSION: No acute abnormality is seen in the pelvis. Specifically, there is no evidence of perianal abscess or fistula as clinically queried. ACT 112: Negative or not required by law. Dictated: 10/18/2022 3:29 PM Transcribed: 10/18/2022 3:45 PM Vicki [id number] Jennifer [id number] Electronically signed by: Mahesh Mckeon M.D. 10/18/2022 3:45 PM Hospital Course (1) Hyponatremia: Asymptomatic, incidentally noted on admission lab work with presenting Na level of 119. Urine sodium was 13 consistent with solute deficiency. Due to the severe rectal pain he had been restricting his diet for fear of having a bowel movement. Sodium level improved nicely while here with Na level of 131 at discharge. He was discharged on NaCL tablets 1gm daily x 10 days with instructions to have a repeat BMP within 3-5 days. He was eating/drinking better by time of discharge. (2) Anal fissure: The patient has a past history of anal fissure/fistula. He had been evaluated by [facility], Dr Greg Arroyo, in the [facility] General surgery clinic who referred him to [facility] colorectal surgery (appt Friday10/22/[address] Katie Lara at 11:15 AM - [place] office location). Dr Arroyo was concerned he had developed another anal fistula. The patient had severe rectal pain throughout his visit and required intermittent narcotics for such. At discharge he will continue diltiazem gel, stool softeners, and oxycodone prn. (3) Anal or rectal pain: Patient will be seeing Dr Katie Lara - [facility] Colorectal Surgery - on 10/22/22 at 1115am to ascertain the cause of his pain. Again CT abd/pelvis this admission failed to identify a specific cause of the pain. A copy of his CT scan was given to the patient at discharge. (4) Hypertension: Noted to be hypertensive with systolics in the 200's on admission. Suspect that pain was a large route relief driver of the uncontrolled HTN. He was initiated on amlodipine 5 mg p.o. daily. Hopefully as his pain improves his BPs will improve with it. (5) Diabetes: HbA1c 6.2% Consistent with pre-DM f/u with PCP for such (6) Morbid obesity with BMI of 45.0-49.9, adult: BMI 47.9 Total Time Total Time Spent Total Time Spent (In Minutes): 40 Discharge Plan Discharge Items Patient Disposition: Home - Self-Care Reason For Visit: BUTTOCKS/RECTAL PAIN Discharge Diagnosis: 1. severe rectal pain - colorectal surgery follow-up scheduled 10/22/22 2. severe hyponatremia (low sodium); admission level = 119; discharge level = 131 - much improved 3. high blood pressure 4. pre-diabetes Activity: Per Instructions section Driving/Machine Use: NO DRIVING IF TAKING NARCOTIC PAIN KILLER MEDICATION Non-emergency contact: Primary Care Provider Call non-emergency contact if: you have any medication questions, your symptoms worsen, your pain is not controlled, your pain is worsening and you have a fever Follow-up/Referrals: Anupam Monte DO [Primary Care Provider] - 10/28/22 3:00 pm (WITHIN 5 DAYS; RECHECK OF SODIUM LEVEL AND BLOOD PRESSURE ) Katie Lara MD [Outside Practitioners] - 10/22/22 11:15 am Diet: Carb Consistent or DM2 Fluids: 1800ml (7 cups) Ambulatory Orders: Basic Metabolic Panel (Routine) Timeframe: 20221025 Location: Determined by Patient Ordered By: Dudley Hwang Attending Provider Instructions: Mr Bates, You were hospitalized for severe rectal/anal pain and low sodium (also known as "hyponatremia"). Your sodium levels were likely low due to a combination of poor salt intake as well as drinking large amounts of water at home. Your sodium level improved nicely while here. Your sodium level at discharge is - In addition you underwent pelvic CT to look for causes of your rectal pain. We did not see any abscess in the region of the anus/rectum nor other abnormalities. With that said there is concern for a recurrent fistula and you have been referred to colorectal surgery via the [facility] to address this problem. Recommendations - 1. for rectal pain - * oxycodone 5mg tablet - 2 tablets every 6 hours as needed for pain * know that oxycodone can make you sleepy - thus, NO DRIVING while taking oxycodone narcotic pain killer medication and NO ALCOHOL while taking this medication * the oxycodone can also cause constipation * continue the diltiazem cream twice daily as previously prescribed by Dr Arroyo, [facility] * naproxen 500mg up to twice daily as needed for pain * follow any other additional instructions outlined by the surgeon at today's surgical visit * please give the CD of your CT scan to the surgeon today at your office visit 2. for prevention/treatment of constipation - * dzdz-jmp-kfejxjd miralax one serving once or twice daily * rokm-eav-bjdsbuv senokot 2 tablets once daily * in many cases both medications have to be taken to help with constipation particularly while taking narcotic pain killer medication (oxycodone) 3. for low sodium - * limit total fluid intake over a 24-hour period to 1800cc (this includes any fluid you drink) * take a salt tablet (sodium chloride) 1 gram once daily; start this TODAY, 10/22/22 * have a repeat sodium level (blood draw) THIS 10/25/22, to ensure your sodium level is stable; you can have the blood drawn at the [facility] main lab, [facility] office location, etc. 4. for high blood pressure - * amlodipine 5mg once daily every day * if possible please check your blood pressure at home twice daily; if you don't have a home blood pressure cuff please purchase one from [employer], [employer], etc * please show these values to your family doctor Follow-up - see separate section Return to [facility] or any other hospital if - * you have severe, uncontrolled rectal/anal pain * you have inability to have a bowel movement * you have consistently high blood pressure readings over 200 systolic ("top number") * any other concerns Please continue to feel better! Dr Mcknight Pending Studies at Discharge: No Stand-Alone Forms: My [facility], Pain - Opioid Pain Management, Smoking Cessation Medications and DC Order Prescriptions: New polyethylene glycol 3350 [Miralax] 17 gram Powder In Packet 17 g PO DAILY Qty: 1 0RF Rx Instructions: PURCHASE [id number] amlodipine [Norvasc] 5 mg Tablet 5 mg PO QAM Qty: 30 2RF sodium chloride 1,000 mg tablet,soluble 1,000 mg PO DAILY Qty: 10 0RF Continued B-complex with vitamin C Capsule 1 cap PO DAILY cholecalciferol (vitamin D3) 50 mcg (2,000 unit) capsule 50 mcg PO DAILY magnesium 250 mg tablet 250 mg PO DAILY diltiazem 2% 1 bead DE BID Qty: 1 0RF hydrocortisone [Proctozone-HC] 2.5 % cream with perineal applicator 1 applic DE DAILY PRN (Reason: hemorrhoids) Qty: 30 1RF naproxen 500 mg tablet 500 mg PO BID PRN (Reason: pain) Qty: 14 1RF No Action lidocaine 5 % ointment 1 applic topical DAILY zinc acetate 25 mg (zinc) capsule 25 mg PO DAILY oxycodone 5 mg tablet 5 - 10 mg PO Q6H PRN (Reason: PAIN) Qty: 90 0RF Discharge Orders: Discharge Order (Routine); Ordered 10/22/22 Ordered By: Dudley Rocha/Other Patient Handouts: Prediabetes, Understanding Anal Fissures, 5 Steps for Eating Healthier Admission Data Admit Date/Time: 10/18/22 18:03 Attending Provider: Dudley Mcknight Admit Provider: Dudley Vogt Primary Care Provider: Anupam Monte Other Interventions: Discharge Summary Assessment (RN) Last Done: 10/22/22 09:07 Coding Level of Care Code 87402 INP/OBS DISCH >30 MIN Diagnoses Hyponatremia E87.1 Anal fissure K60.2 Anal or rectal pain K62.89 Hypertension I10 Hypertension type: unspecified Diabetes E11.9 Morbid obesity with BMI of 45.0-49.9, adult E66.01; Z68.42
[2022-10-22] MEDS ORDERED: MoRPHine SULFATE 4 MG/ML 1 ML CARP\\VIAL IV STA (09:12)
--- NOTE | 2022-10-24 08:41 | Coding Query ---
CODING QUERY To promote full compliance with coding requirements relating to patient care, provider participation is requested in all cases of medical records coder uncertainty. Please assist us with the question(s) below: Coding Question(s): The H&P documents, "previous DMII before weight loss", and the Progress Notes and Discharge Summary document Diabetes, however the Discharge Summary (currently in Draft Status) also documents down lower, Pre- diabetes. Please clarify below, in your clinical opinion, regarding the diagnosis for Diabetes on this admission: ( ) Diabetes ( x ) Pre-Diabetes ( ) History of DM2 ( ) Other: Please Specify Physician's Response(s): Thank you Lulu Cabrera Principal Diagnosis: "that condition established after study, to be chiefly responsible for occasioning the admission of the patient to the hospital for care." Co-Existing Principal Diagnosis: "when two or more diagnoses equally meet the criteria for principal diagnosis as determined by the circumstances of admission, diagnostic work up, and/or therapy provided, and the Alphabetic Index, Tabular List, or another coding guideline does not provide sequencing direction, any one of the diagnoses may be sequenced first." "When the physician has documented what appears to be a current diagnosis in the body of the record, but has not included the diagnosis in the final diagnostic statement, the physician should be asked whether the diagnosis should be added." (Source Coding Clinic 2 QTR90. p3-4) [place]
== END 2022-10-22 10:29 | disposition home or self-care (01) | DRG 394 ==
LOC: ED 14:17 → 2E 18:03 → SUATTDRO 18:03 → 2E 20:10 → 3W 10-21 14:27